=== PATIENT | male | born 1980 | race Caucasian/White ===

== ENCOUNTER 2016-04-15 20:52 | Emergency (ER) | payer OTHER ==
[2016-04-15] MEDS ORDERED: ASPIRIN CHEW 81 MG TABLET PO STA (21:28)
[2016-04-15] MEDS ORDERED: ASPIRIN CHEW 81 MG TABLET ONE (21:31)
== END 2016-04-15 23:20 | disposition home or self-care (01) ==
DX: R07.2 Precordial pain (principal); I10 Essential (primary) hypertension; K21.9 Gastro-esophageal reflux disease without esophagitis; Z82.49 Family history of ischemic heart disease and other diseases of the circulatory system
CPT/HCPCS: 36415; 71010; 80053; 83690; 84484; 85025; 93005; 93010; 99283; 99284; A9270

== ENCOUNTER 2016-05-25 10:13 | Emergency (ER) | payer OTHER ==
[2016-05-25] MEDS ORDERED: IBUPROFEN 600 MG TABLET PO ONE (12:05)
[2016-05-25] MEDS ORDERED: IBUPROFEN 600 MG TABLET PO STA (12:05)
[2016-05-25] MEDS ORDERED: BENZONATATE 100 MG CAPSULE PO STA (12:12)
[2016-05-25] MEDS ORDERED: guaiFENesin/CODEINE 5 ML UDC PO STA (12:12)
[2016-05-25] MEDS ORDERED: BENZONATATE 100 MG CAPSULE PO ONE (12:19)
[2016-05-25] MEDS ORDERED: guaiFENesin/CODEINE 5 ML UDC ONE (12:19)
[2016-05-25] MEDS ORDERED: ACETAMINOPHEN 325 MG TABLET PO STA (12:56)
[2016-05-25] MEDS ORDERED: ACETAMINOPHEN 325 MG TABLET PO ONE (13:00)
[2016-05-25] MEDS ORDERED: AZITHROMYCIN 250 MG TABLET PO STA (13:39)
[2016-05-25] MEDS ORDERED: AZITHROMYCIN 250 MG TABLET PO ONE (13:55)
== END 2016-05-25 14:01 | disposition home or self-care (01) ==
DX: J18.9 Pneumonia, unspecified organism (principal); I10 Essential (primary) hypertension
CPT/HCPCS: 71020; 87275; 87276; 99283; A9270

== ENCOUNTER 2017-07-28 21:50 | Emergency (ER) | payer OTHER ==
[2017-07-28] MEDS ORDERED: DEXAMETHASONE 10 MG/ML VIAL PO STA (22:41)
[2017-07-28] MEDS ORDERED: KETOROLAC 60 MG/2 ML VIAL IM STA (22:41)
[2017-07-28] MEDS ORDERED: CYCLOBENZAPRINE 10 MG Prepack 2 PO STA (22:41)
--- NOTE | 2017-07-28 23:06 | ED Physician Documentation ---
PD HPI NECK PAIN - Stated complaint Stated Complaint: RT SIDE PX - Chief complaint Chief Complaint: General - History obtained from History obtained from: Patient - History of Present Illness Timing - onset: Yesterday Timing - details: Gradual onset, Still present Location: Upper, Lower, Right Quality: Pain, Spasm Associated symptoms: No: Fever, Weakness, Numbness Similar symptoms before: Has not had sx before Recently seen: Not recently seen - Additional information Additional information: Patient is a 37 year old male with no significant past medical history who is presenting to the emergency department for right sided neck pain. patient states that it started yesterday and got progressively worse. 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 Patient has no focal neurological deficits. Review of Systems Constitutional: denies: Fever, Chills Eyes: reports: Reviewed and negative Ears: reports: Reviewed and negative Cardiac: denies: Chest pain / pressure Respiratory: denies: Dyspnea, Cough, Wheezing GI: denies: Nausea, Vomiting Musculoskeletal: reports: Neck pain, Back pain, Extremity pain Neurologic: denies: Focal weakness, Numbness Immunocompromised: denies: Immunocompromised PD PAST MEDICAL HISTORY - Past Medical History Cardiovascular: Hypertension Respiratory: None Endocrine/Autoimmune: None GI: GERD : None HEENT: None Psych: None Musculoskeletal: Other Derm: None - Past Surgical History Past Surgical History: Yes General: Other - Present Medications Home Medications: Ambulatory Orders Medication Instructions Recorded Confirmed Lisinopril 20 mg PO DAILY 07/08/14 12/17/16 Cyclobenzaprine [Flexeril] 10 mg PO TID PRN #14 tablet 07/28/17 Lidocaine Patch 5% [Lidoderm Patch] 1 each TOP DAILY #14 patch 07/28/17 - Allergies Allergies/Adverse Reactions: Allergies Allergy/AdvReac Type Severity Reaction Status Date / Time No Known Drug Allergies Allergy Verified 12/11/16 15:53 - Social History Does the pt smoke?: No Smoking Status: Never smoker Does the pt drink ETOH?: Yes Does the pt have substance abuse?: No - Immunizations Immunizations are current?: Yes - POLST Patient has POLST: No PD ED PE NORMAL - Vitals Vital signs reviewed: Yes - General General: Alert and oriented X 3 - HEENT HEENT: Atraumatic - Cardiac Cardiac: RRR - Respiratory Respiratory: No respiratory distress - Derm Derm: Normal color, Warm and dry - Extremities Extremities: No deformity - Neuro Neuro: Alert and oriented X 3, No motor deficit, Normal speech Eye Opening: Spontaneous Motor: Obeys Commands Verbal: Oriented GCS Score: 15 - Psych Psych: Normal mood PD ED PE EXPANDED - Neck Neck: Soft tissue TTP (tenderness to palpation of right paraspinal muscles). No : Bony TTP, Limited ROM Results - Vitals Vitals: Vital Signs - 24 hr 07/28/17 22:10 Temperature 37.1 C Heart Rate 79 Respiratory 18 Rate Blood Pressure 116/80 O2 Saturation 99 Oxygen O2 Source Room air PD MEDICAL DECISION MAKING - ED course Complexity details: reviewed old records, reviewed results, re-evaluated patient , considered differential, d/w patient ED course: Patient was seen and examined at bedside. Patient was well appearing and in no distress. Patient was treated with toradol and decadron. Patient had no neurological deficits. patient's sympotms were likely musculoskeletal in nature. patient required no further work up and was stable for discharge with outpatient follow up. - Sepsis Event Vital Signs: Vital Signs - 24 hr 07/28/17 22:10 Temperature 37.1 C Heart Rate 79 Respiratory 18 Rate Blood Pressure 116/80 O2 Saturation 99 Oxygen O2 Source Room air Departure - Departure Disposition: 01 Home, Self Care Clinical Impression: Neck muscle strain Condition: Good Instructions: ED Neck Pain No Trauma Follow-Up: MARIA ESTHER BARON [Primary Care Provider] - Prescriptions: Cyclobenzaprine [Flexeril] 10 mg PO TID PRN #14 tablet PRN Reason: Spasms Lidocaine Patch 5% [Lidoderm Patch] 1 each TOP DAILY #14 patch Comments: Your symptoms today are being caused by a neck strain. You should alternate between heat and ice on the affected area. You can take motrin or tylenol as needed for pain and apply a lidoderm patch. You can take the muscle relaxer as needed but you should not drive or operate heavy machinery while taking it. You should follow up with your doctor if symptoms persist. You may return to the emergency department at any time for new, worsening or uncontrollable symptoms.
[2017-07-28 23:20] VITALS: BP 128/80
== END 2017-07-28 23:23 | disposition home or self-care (01) ==
LOC: ED 21:50
DX: S16.1XXA Strain of muscle, fascia and tendon at neck level, initial encounter (principal); X58.XXXA Exposure to other specified factors, initial encounter; I10 Essential (primary) hypertension; K21.9 Gastro-esophageal reflux disease without esophagitis
CPT/HCPCS: 96372; 99283

== ENCOUNTER 2017-09-23 20:35 | Emergency (ER) | payer OTHER ==
[2017-09-23 20:48] VITALS: BP 142/85
[2017-09-23] MEDS ORDERED: HYDROcod/ACET 5/325 Prepack 4 PO STA (21:41)
[2017-09-23] MEDS ORDERED: INDOMETHACIN 25 MG CAPSULE PO STA (21:41)
[2017-09-23] MEDS ORDERED: predniSONE 20 MG TABLET PO STA (21:41)
[2017-09-23] MEDS ORDERED: COLCHICINE 0.6 MG TABLET PO STA (21:41)
--- NOTE | 2017-09-23 21:46 | ED Physician Documentation ---
PD HPI LOWER EXT INJURY - Stated complaint Stated Complaint: RT FOOT PX - Chief complaint Chief Complaint: Ext Problem - History obtained from History obtained from: Patient - History of Present Illness PD HPI LOW EXT INJURY LOCATION: Right, Foot (2 days of severe pain of the right great toe without injury. He is never had this before. Other than the toe he feels fine. He does have a family history of gout.) Review of Systems Constitutional: denies: Fever, Chills GI: denies: Abdominal Pain, Nausea, Vomiting PD PAST MEDICAL HISTORY - Past Medical History Cardiovascular: Hypertension Respiratory: None Endocrine/Autoimmune: None GI: GERD : None HEENT: None Psych: None Musculoskeletal: Other Derm: None - Past Surgical History Past Surgical History: Yes General: Other Ortho: Carpal Tunnel surgery - Present Medications Home Medications: Ambulatory Orders Medication Instructions Recorded Confirmed Lisinopril 20 mg PO DAILY 07/08/14 12/17/16 Cyclobenzaprine [Flexeril] 10 mg PO TID PRN #14 tablet 07/28/17 Lidocaine Patch 5% [Lidoderm Patch] 1 each TOP DAILY #14 patch 07/28/17 HYDROcod/ACETAM 5/325 [[place] 5/325] 1 - 2 ea PO Q6H PRN #10 tablet 09/23/17 Indomethacin [Indocin] 25 mg PO BIDWM #10 capsule 09/23/17 predniSONE [Deltasone] 60 mg PO DAILY 5 Days tablet 09/23/17 - Allergies Allergies/Adverse Reactions: Allergies Allergy/AdvReac Type Severity Reaction Status Date / Time No Known Drug Allergies Allergy Verified 09/23/17 20:47 - Social History Does the pt smoke?: No Smoking Status: Never smoker Does the pt drink ETOH?: Yes Does the pt have substance abuse?: No - Immunizations Immunizations are current?: Yes - POLST Patient has POLST: No PD ED PE NORMAL - Vitals Vital signs reviewed: Yes - General General: Alert and oriented X 3, No acute distress - Extremities Extremities: Other (He has a pretty clear case of podagra of the right great toe with tenderness redness and swelling of both the MTP and IP joints.) - Neuro Neuro: Alert and oriented X 3, Normal speech Results - Vitals Vitals: Vital Signs - 24 hr 09/23/17 20:40 Temperature 37.3 C Heart Rate 101 H Respiratory 18 Rate Blood Pressure 142/85 H O2 Saturation 100 Oxygen O2 Source Room air PD MEDICAL DECISION MAKING - Sepsis Event Vital Signs: Vital Signs - 24 hr 09/23/17 20:40 Temperature 37.3 C Heart Rate 101 H Respiratory 18 Rate Blood Pressure 142/85 H O2 Saturation 100 Oxygen O2 Source Room air Departure - Departure Disposition: 01 Home, Self Care Clinical Impression: Podagra Condition: Good Record reviewed to determine appropriate education?: Yes Instructions: ED Arthritis Gout Prescriptions: HYDROcod/ACETAM 5/325 [[place] 5/325] 1 - 2 ea PO Q6H PRN #10 tablet PRN Reason: Pain Indomethacin [Indocin] 25 mg PO BIDWM #10 capsule predniSONE [Deltasone] 60 mg PO DAILY 5 Days tablet Comments: Call your doctor to arrange a follow-up appointment, make the next available appointment. In the interim, return anytime if worse or if new symptoms develop. Your blood pressure was elevated today on check into the emergency department. This does not mean that you have hypertension, it is a common phenomenon to come to the emergency department and have elevated blood pressure. I recommend that you see your primary care physician within the week to have it rechecked when you are feeling better. Forms: Activity restrictions
== END 2017-09-23 22:05 | disposition home or self-care (01) ==
LOC: ED 20:35
DX: M10.9 Gout, unspecified (principal); I10 Essential (primary) hypertension
CPT/HCPCS: 99283; A9270; J7512

== ENCOUNTER 2017-11-30 12:20 | Outpatient (CLI) | payer OTHER ==
--- NOTE | 2017-11-30 17:25 | MRI Report ---
Reason: GOUT Procedure Date: 11/30/2017 Accession Number: [id number] / [id number] Procedure: MRI - Toe(s) RT W/O CPT Code: 64010 FULL RESULT: EXAM: RIGHT FOREFOOT MRI WITHOUT CONTRAST EXAM DATE: 11/30/2017 12:52 PM. CLINICAL HISTORY: Gout. COMPARISON: None available. TECHNIQUE: Multiplanar, multisequence T1-weighted and fluid-sensitive sequences of the forefoot without contrast. Other: None. FINDINGS: Bones: No fracture or bone lesion. Minimal bone marrow edema at the dorsal aspect first distal phalanx base. Joints: No subluxations. Small to moderate joint effusion with synovitis at the first interphalangeal joint. Ill-defined 0.7 x 1.4 x 2.1 cm focus of T1 hypointense and fluid sensitive isointense to hyperintense signal along the dorsal and medial aspect of the joint space. The majority of this appears centered within the joint capsule at the dorsal and medial aspect with likely extension into the joint and possible extension into the adjacent soft tissues. This results in mass effect and possible extension into the extensor tendon. A 0.4 cm cystic focus present along the superficial aspect of the first interphalangeal joint medially. The alzwmt-olyrfxnv-cwqlmllsje complex is unremarkable. Degenerative fraying at the first plantar plate. Articular Cartilage: Minimal cartilage loss at the first interphalangeal joint. Ligaments: The visualized collateral ligaments are intact. Tendons: The flexor and extensor tendons are intact. Obscuration at the medial aspect first extensor tendon at the level of the interphalangeal joint due to ill-defined soft tissue mass. Musculature: No edema or fatty atrophy. Other: Minimal bursitis second and third metatarsal interspaces. Mild subcutaneous edema over the dorsal and medial aspect first interphalangeal joint. IMPRESSION: 1. 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 This appears centered within the joint capsule with likely extension into the joint and possible extension into the adjacent soft tissues including the extensor tendon. 2. Phlegmon or other solid soft tissue mass also in the differential. Recommend clinical correlate. Small to moderate joint effusion at the first interphalangeal joint with synovitis. 3. Subtle reactive edema first distal phalanx base. 4. 0.4 cm ganglion versus cystic tophus at the plantar medial aspect first interphalangeal joint. [facility] MUSCULOSKELETAL RADIOLOGY SECTION
== END 2017-11-30 12:21 | disposition home or self-care (01) ==
LOC: DI 12:20
PROVIDERS: ATTEND Family Medicine
DX: M10.9 Gout, unspecified (principal); M25.474 Effusion, right foot; R60.0 Localized edema

== ENCOUNTER 2017-12-29 11:24 | Emergency (ER) | payer OTHER ==
[2017-12-29 11:37] VITALS: BP 151/91
[2017-12-29 12:04] LABS: BASOPHILS # (AUTO) 0.1 10^3/uL (0.0-0.1); BASOPHILS % (AUTO) 0.9 %; EOSINOPHILS # (AUTO) 0.1 10^3/uL (0.0-0.7); EOSINOPHILS % (AUTO) 0.9 %; HGB - HEMOGLOBIN 15.2 g/dL (14.0-18.0); LYMPHOCYTES # (AUTO) 1.8 10^3/uL (1.5-3.5); LYMPHOCYTES % (AUTO) 24.5 %; MEAN CORPUSCULAR HEMOGLOBIN 31.8 pg (27.0-31.0); MEAN CORPUSCULAR HGB CONC 34.8 g/dL (32.0-36.0); MEAN CORPUSCULAR VOLUME 91.3 fL (80.0-94.0); MEAN PLATELET VOLUME 7.2 fL (7.4-11.4); MONOCYTES # (AUTO) 0.5 10^3/uL (0.0-1.0); MONOCYTES % (AUTO) 6.2 %; NEUTROPHILS # (AUTO) 4.9 10^3/uL (1.5-6.6); NEUTROPHILS % (AUTO) 67.5 %; PLT - PLATELET COUNT 250 10^3/uL (130-450); RED CELL DISTRIBUTION WIDTH 12.8 % (12.0-15.0); WHITE BLOOD COUNT 7.3 x10^3/uL (4.8-10.8)
--- NOTE | 2017-12-29 12:12 | XRAY Report ---
Reason: chest pain Procedure Date: 12/29/2017 Accession Number: [id number] / [id number] Procedure: XR - Chest 1 View X-Ray CPT Code: 20106 FULL RESULT: EXAM: CHEST RADIOGRAPHY EXAM DATE: 12/29/2017 11:49 AM. CLINICAL HISTORY: Chest pain. COMPARISON: None. TECHNIQUE: 1 view. FINDINGS: Lungs/Pleura: No focal opacities evident. No pleural effusion. No pneumothorax. Mediastinum: Within exam limitations, the cardiomediastinal contour is normal. IMPRESSION: No evidence of acute thoracic process [facility]
[2017-12-29 12:17] LABS: ALBUMIN 4.4 g/dL (3.2-5.5); ALBUMIN/GLOBULIN RATIO 1.2 (1.0-2.2); BILIRUBIN,TOTAL 2.2 mg/dL (0.2-1.0); CALCIUM 9.2 mg/dL (8.5-10.3); CREATININE 1.1 mg/dL (0.6-1.2)
--- NOTE | 2017-12-29 12:40 | ED Physician Documentation ---
PD HPI CHEST PAIN - Stated complaint Stated Complaint: CHEST PAIN - Chief complaint Chief Complaint: Cardiac - History obtained from History obtained from: Patient - History of Present Illness Timing - onset: How many minutes ago (20-30), Today Timing - onset during: Rest, Eating (he had finished eating early lunch and was just sitting when felt onset of anterior chest pain/pressure, lasted about 5-10 minutes. Feeling better after. Denies exertional CP nor dyspnea and does do some regular exercise.) Timing - duration: Minutes Timing - details: Abrupt onset, Now resolved Quality: Pressure, Tightness, Aching Location: Substernal, Left chest Radiation: No: Jaw, Neck, Back Worsened by: Movement. No: Inspiration Associated symptoms: Cough (for past few days). No: Shortness of air, Diaphoresis, Nausea, Feeling faint / dizzy, General Weakness, Palpitations Similar symptoms before: Has not had sx before Recently seen: Not recently seen Review of Systems Constitutional: denies: Fever, Chills Nose: reports: Congestion. denies: Rhinorrhea / runny nose Throat: denies: Sore throat Cardiac: denies: Palpitations, Pedal edema, Calf pain Respiratory: reports: Cough. denies: Dyspnea GI: denies: Abdominal Pain, Nausea, Vomiting, Diarrhea Skin: denies: Rash, Lesions Musculoskeletal: denies: Extremity swelling Neurologic: reports: Generalized weakness. denies: Focal weakness, Numbness PD PAST MEDICAL HISTORY - Past Medical History Cardiovascular: Hypertension Respiratory: None Endocrine/Autoimmune: None GI: GERD : None HEENT: None Psych: None Musculoskeletal: Other Derm: None - Past Surgical History Past Surgical History: Yes General: Other Ortho: Carpal Tunnel surgery - Present Medications Home Medications: Ambulatory Orders Medication Instructions Recorded Confirmed Lisinopril 20 mg PO DAILY 07/08/14 12/17/16 Cyclobenzaprine [Flexeril] 10 mg PO TID PRN #14 tablet 07/28/17 Lidocaine Patch 5% [Lidoderm Patch] 1 each TOP DAILY #14 patch 07/28/17 HYDROcod/ACETAM 5/325 [[place] 5/325] 1 - 2 ea PO Q6H PRN #10 tablet 09/23/17 Indomethacin [Indocin] 25 mg PO BIDWM #10 capsule 09/23/17 predniSONE [Deltasone] 60 mg PO DAILY 5 Days tablet 09/23/17 Ibuprofen [Ibu] 600 mg PO TID #30 tablet 12/29/17 - Allergies Allergies/Adverse Reactions: Allergies Allergy/AdvReac Type Severity Reaction Status Date / Time No Known Drug Allergies Allergy Verified 09/23/17 20:47 - Social History Does the pt smoke?: No Smoking Status: Never smoker Does the pt drink ETOH?: Yes Does the pt have substance abuse?: No - Immunizations Immunizations are current?: Yes - POLST Patient has POLST: No PD ED PE NORMAL - Vitals Vital signs reviewed: Yes - General General: Alert and oriented X 3, No acute distress, Well developed/nourished - HEENT HEENT: Pharynx benign - Neck Neck: Supple, no meningeal sign, No adenopathy, No JVD - Cardiac Cardiac: RRR, No murmur - Respiratory Respiratory: Clear bilaterally, Other (some tendeerness of sternal cartilage left chest. ) - Abdomen Abdomen: Soft, Non tender - Derm Derm: Normal color, Warm and dry Results - Vitals Vitals: Oxygen O2 Source Room air - EKG (time done) 11:37 Rate: Rate (enter#) (102) Rhythm: NSR [place]: Normal Intervals: Normal VT Ischemia: Normal ST segments. No: ST elevation c/w ischemia, ST depression - Labs Labs: Laboratory Tests 12/29/17 12/29/17 12/29/17 11:58 11:58 11:58 WBC 7.3 RBC 4.80 Hgb 15.2 Hct 43.8 MCV 91.3 MCH 31.8 H MCHC 34.8 RDW 12.8 Plt Count 250 MPV 7.2 L Neut # (Auto) 4.9 Lymph # (Auto) 1.8 [place] # (Auto) 0.5 Eos # (Auto) 0.1 Baso # (Auto) 0.1 Absolute Nucleated RBC 0.00 Nucleated RBC % 0.1 Sodium 136 Potassium 4.0 Chloride 98 L Carbon Dioxide 27 Anion Gap 11.0 BUN 14 Creatinine 1.1 Estimated GFR (MDRD) 75 L Glucose 93 Calcium 9.2 Total Bilirubin 2.2 H AST 51 H ALT 67 H Alkaline Phosphatase 70 Troponin I < 0.04 Total Protein 8.0 Albumin 4.4 Globulin 3.6 Albumin/Globulin Ratio 1.2 Lipase 36 12/29/17 13:19 WBC RBC Hgb Hct MCV MCH MCHC RDW Plt Count MPV Neut # (Auto) Lymph # (Auto) [place] # (Auto) Eos # (Auto) Baso # (Auto) Absolute Nucleated RBC Nucleated RBC % Sodium Potassium Chloride Carbon Dioxide Anion Gap BUN Creatinine Estimated GFR (MDRD) Glucose Calcium Total Bilirubin AST ALT Alkaline Phosphatase Troponin I < 0.04 Total Protein Albumin Globulin Albumin/Globulin Ratio Lipase - Rads (name of study) chest Radiology: Prelim report reviewed (normal) PD MEDICAL DECISION MAKING - ED course Complexity details: considered differential (has had some cough and congestion and anterior chest pain now. Seems musculoskeletal and tests are okay. ), d/w patient Departure - Departure Disposition: Home, Self Care Clinical Impression: Chest pain Qualifiers: Chest pain type: precordial pain Qualified Code(s): R07.2 - Precordial pain Upper respiratory infection Qualifiers: URI type: unspecified URI Qualified Code(s): J06.9 - Acute upper respiratory infection, unspecified Condition: Stable Record reviewed to determine appropriate education?: Yes Instructions: ED Chest Pain NonCardiac Follow-Up: MARIA ESTHER BARON [Primary Care Provider] - Prescriptions: Ibuprofen [Ibu] 600 mg PO TID #30 tablet Comments: Your EKG chest x-ray and blood tests are normal so does not identify any significant process such as pneumonia, collapsed lung, heart attack or heart failure. This sounds likely to be musculoskeletal pain related to the cough and viral illness symptoms. Use some ibuprofen 3 times a day. Rest for a day or 2. Stay well-hydrated. Recheck if not better over the next few days. Forms: Activity restrictions Discharge Date/Time: 12/29/17 14:05
[2017-12-29] MEDS ORDERED: CHERRY SYRUP 10 ML UDC PO ONE (14:03)
[2017-12-29] MEDS: DEXAMETHASONE 10 MG/ML VIAL PO STA (14:06)
[2017-12-29] MEDS: IBUPROFEN 600 MG TABLET PO STA (14:06)
== END 2017-12-29 14:05 | disposition home or self-care (01) ==
LOC: ED 11:24
DX: R07.2 Precordial pain (principal); J06.9 Acute upper respiratory infection, unspecified; I10 Essential (primary) hypertension
CPT/HCPCS: 36415; 71045; 80053; 83690; 84484; 85025; 93005; 99283